=== PATIENT | male | born 1970 | race Caucasian/White ===

== ENCOUNTER 2019-11-19 02:52 | Emergency (ER) | payer MEDICAID ==
[~2019-11-19] VITALS: Ht 182.9 cm; Wt 77.0 kg
[2019-11-19] MEDS ORDERED: DIPHENHYDRAMINE 50MG/ML VIAL IV ONE (03:15)
[2019-11-19] MEDS ORDERED: METOCLOPRAMIDE HCL 10MG/2ML VIAL IV ONE (03:15)
[2019-11-19 05:20] VITALS: BP 120/69
== END 2019-11-19 06:00 | disposition home or self-care (01) ==
LOC: ER 02:52
DX: S09.8XXA Other specified injuries of head, initial encounter (principal); G43.909 Migraine, unspecified, not intractable, without status migrainosus; Z88.6 Allergy status to analgesic agent; W01.0XXA Fall on same level from slipping, tripping and stumbling without subsequent striking against object, initial encounter; Y93.89 Activity, other specified; Y92.018 Other place in single-family (private) house as the place of occurrence of the external cause
CPT/HCPCS: 70450; 93005; 96374; 96375; 99284; J1200; J2765